=== PATIENT | female | born 1980 | race African-American/Black ===

== ENCOUNTER 2023-04-13 13:24 | Emergency (ER) | payer OTHER, SELFPAY ==
[2023-04-13] VITALS (8 sets, daily range): BP systolic 86–101; BP diastolic 53–64; PULSE 51–83; RESP 14–18; TEMP 36.6–37.6; O2SAT 97–100; BMI 21.4
--- NOTE | ~2023-04-13 | XR_ITS ---
EXAMINATION: XR CHEST CLINICAL INFORMATION: Chest congestion COMPARISON: None available. TECHNIQUE: Frontal view of the chest was obtained. FINDINGS: The lungs are well-expanded with patchy opacity right upper lobe likely infiltrate or atelectasis. Heart size and pulmonary vascularity is normal. No gross bony abnormality seen. XR/XR chest 1V IMPRESSION: Patchy opacity right upper lobe likely infiltrate or atelectasis.
--- NOTE | 2023-04-13 13:38 | ED.GENADULT ---
HPI - General Adult General Chief complaint: Upper Respiratory Symptoms Stated complaint: Cough Head Pain Sore Throat Time Seen by Provider: 04/13/23 17:18 Source: patient and RN notes reviewed Mode of arrival: ambulatory Limitations: no limitations History of Present Illness HPI narrative: This is a 42-year-old female, with no known medical problems, presenting to the emergency department complaints of subjective fevers, cough, headaches, sore throat, congestion x 3 days. Patient reports that she has been taking Tylenol and ibuprofen as well as DayQuil which has provided her without any relief. She denies any chest pain or shortness of breath. Denies any abdominal pain, nausea, vomiting or diarrhea. She states that her child is sick and was recently diagnosed with the flu. No other complaints or concerns at this time. MD complaint: Cough Onset (ago): day(s) Relieving factors: none Exacerbating factors: none Associated symptoms: cough, fever/chills, headaches and loss of appetite Treatments prior to arrival: none Related Data Previous Rx's Medication Instructions Recorded acetaminophen 500 mg tablet 500 mg PO Q6H PRN fever or pain 04/13/23 (Tylenol Extra Strength) #30 tabs azithromycin 250 mg tablet 250 mg PO DAILY 4 days #4 tabs 04/13/23 ibuprofen 600 mg tablet 600 mg PO Q6H PRN pain #30 tabs 04/13/23 Allergies Allergy/AdvReac Type Severity Reaction Status Date / Time No Known Allergies Allergy Verified 04/13/23 13:38 Review of Systems Review of Systems: Yes all other systems are reviewed and are negative Constitutional: Constitutional: Reports as per [facility] Social History Social History Advance Directives: No Advance Directives Information Provided: No Physical Exam ED Vital Signs: Vital Signs - 24 hr 04/13/23 13:40 04/13/23 17:31 04/13/23 19:26 Temperature 99.6 F 98.5 F 98.7 F Pulse Rate 83 79 65 Respiratory Rate 18 18 16 Blood Pressure 101/61 94/53 L 88/60 L Pulse Oximetry 99 100 98 Oxygen Delivery Method Room Air Room Air Room Air BMI result Body Mass Index 21.4 Const General: cooperative, comfortable and no acute distress Orientation/consciousness: patient oriented x3 Limitations: no limitations HENMT Head: Yes normal to inspection, Yes normocephalic and Yes atraumatic Ears: hearing grossly normal bilaterally General nose exam: Normal external nose present Face and sinus: Yes normal facial exam Mouth: Normal oral and palatal mucosa present, oropharynx normal and moist mucous membranes Throat: Yes posterior oropharynx normal Eyes General: appearance normal, both eyes and all related structures Eyelids: Yes eyelids normal Conjunctivae: conjunctivae normal Sclerae: sclerae normal Pupils: Equal, round and reactive pupils present EOM: EOMs intact bilaterally Neck Neck: Yes normal visual inspection, Yes full ROM and Yes no lymphadenopathy Lymphatic: no lymphadenopathy noted Chest Chest palpation & inspection: normal inspection of the chest Resp Effort & Inspection: normal respiratory effort and able to speak in complete sentences Auscultation: clear to auscultation bilaterally, no crackles, no rales, no rhonchi and no wheezes Cardio Rate: regular rate Rhythm: regular rhythm Heart sounds: S1 normal heart sound present and S2 normal heart sound present GI Inspection: Yes normal to inspection Skin General skin exam: no rashes or lesions noted Trauma: no lacerations or abrasions Wounds: no wounds Neuro General: patient oriented x3 and moves all extremities Cranial nerves: Yes Equal, round and reactive pupils present Extrem General: Yes normal to inspection Right upper extremity: normal to inspection Left upper extremity: normal to inspection Right lower extremity: normal to inspection Left lower extremity: normal to inspection Course Course Course Narrative: RME:?42 yo female here w/ cough, sore throat, BERGMAN, chest congestion x2 days. kids positive for flu at home. Denies fever, chills, n/v. taking tylenol and motrin yesterday. took dose of dayquil this morning. posterior oropharynx wnl. lungs cta Plan for seriology, cxr Full HPI, ROS and PE to be performed by the primary ED provider. Reevaluation(s) Reevaluation #1: We had repeated her vital signs, blood pressure 88/60, patient is afebrile, not tachycardic. Given hypotension, will administer 1 L IV fluids and obtain basic labs. Spoke to attending physician, Dr. Moreno regarding patient's status who agrees with plan. Patient also get the given azithromycin and Tylenol. Sign-out was given to my colleague, Bucky Mon, ANTOINETTE pending re-evaluation after receiving IV fluids and labs. Reevaluation #2: Symptomatic improvement, BP 96/58. Ambulatory with a steady gait. CBC and CMP are overall unremarkable. At this time stable for discharge home, reviewed worrisome signs and symptoms that would warrant re-evaluation emergency department. All questions answered. Stable discharge. Time: 20:51 Medications Administered Discontinued Medications Generic Name Dose Route Start Last Admin Trade Name Jing PRN Reason Stop Dose Admin Acetaminophen 975 mg 04/13/23 18:59 04/13/23 19:19 Acetaminophen 325 Mg Tablet PO 04/13/23 19:00 975 mg ONCE ONE Administration Azithromycin 500 mg 04/13/23 18:59 04/13/23 19:19 Azithromycin 500 Mg Tablet PO 04/13/23 19:00 500 mg ONCE ONE Administration Sodium Chloride 1,000 mls @ 999 mls/hr 04/13/23 19:28 04/13/23 19:44 Ns IV 04/13/23 20:28 999 mls/hr .Q1H1M ONE Administration Medical Decision Making Medical Decision Making [facility] Narrative: This is a 42-year-old female, with no known medical problems, presenting to the emergency department with complaints of fever, cough, headaches, sore throat, chest congestion, the last several days. On arrival, vital signs within normal limits, patient is afebrile, lungs are clear to auscultation bilaterally. Patient is nontoxic appearing however does appear tired, resting comfortably but easily aroused in the stretcher. Viral swabs were obtained out triage, she tested positive for influenza A. Chest x-ray shows patchy opacity in the right upper lobe likely infiltrate or atelectasis. Differential Diagnosis Differential Diagnoses: The differential diagnosis associated with the presentation includes Admission/Observation Consideration of admission/observation: Escalation of care including admission/observation considered Lab Data [facility] Lab Attestation statement: I reviewed the patient's lab results. 04/13/23 19:35 04/13/23 19:35 Labs: Lab Results 04/13/23 04/13/23 Range/Units 13:55 19:35 WBC 3.8 L (4.8-10.8) X10*3/uL RBC 4.54 (4.20-5.50) X10*6/uL Hgb 12.3 (12.0-16.0) g/dl Hct 37.4 (37.0-47.0) % MCV 82.4 (80.0-98.0) fL MCH 27.1 (27.0-33.0) pg MCHC 32.9 (31.0-35.0) g/dl RDW 13.9 (11.0-16.0) % Plt Count 209 (160-400) X10*3/uL MPV 9.5 (9.4-12.3) fL Immature Gran % (Auto) 0.3 (0.0-0.4) % Neut % (Auto) 50.0 (45-73) % Lymph % (Auto) 33.9 (20-40) % [place] % (Auto) 15.3 H (2-11) % Eos % (Auto) 0.0 (0-4) % Baso % (Auto) 0.5 (0-2) % Lymph # (Auto) 1.3 (1.2-4.9) X10*3/uL [place] # (Auto) 0.6 (0.1-1.2) X10*3/uL Eos # (Auto) 0.0 (0.0-0.4) X10*3/uL Baso # (Auto) 0.0 (0.0-0.2) X10*3/uL Abs Immat Gran (auto) 0.01 (0.00-0.03) X10*3/uL Absolute Neuts (auto) 1.9 L (2.0-8.3) x10*3/uL Absolute Nucleated RBC 0.000 (0.0-0.012) X10*3/uL Nucleated RBC % (auto) 0.0 (0.0-0.2) /100WBC Sodium 137 (135-145) mmol/L Potassium 3.5 (3.3-5.1) mmol/L Chloride 103 (96-108) mmol/L Carbon Dioxide 25 (22-29) mmol/L Anion Gap 13 (12-20) BUN 9 (9-16) mg/dL Creatinine 0.67 (0.5-1.4) mg/dL Estim Creat Clear Calc 90.4 Estimated GFR > 60 Random Glucose 94 (60-115) mg/dL Lactic Acid 0.8 (0.5-2.0) mmol/L Calcium 8.8 (8.4-10.2) mg/dL Total Bilirubin 0.2 (0.0-1.0) mg/dL Direct Bilirubin < 0.2 (0.0-0.5) mg/dL AST 42 H (5-31) U/L ALT 34 H (0-31) U/L Alkaline Phosphatase 50 (39-117) U/L Total Protein 7.2 (6.5-8.0) g/dL Albumin 3.7 (3.5-5.0) g/dL Influenza Type A (PCR) POSITIVE A (Negative) Influenza Type B (PCR) NEGATIVE (Negative) RSV RNA Qual (PCR) NEGATIVE (Negative) SARS-CoV-2 RNA (RT-PCR) NEGATIVE (Negative) S. pyogenes GrpA ROMAN Negative (Negative) Radiology Impression Discussion of test interpretation with radiology: I have reviewed the radiologist's reading. External Record Review External record reviewed: Inpatient record, Office record, Outpatient record, Prior outpatient labs, Prior outpatient radiology, Primary care record and Outside ED record Discharge Plan Discharge Clinical Impression: Influenza, Pneumonia Patient Disposition: Home, Self-Care Instructions: Influenza (ED), Community Acquired Pneumonia (ED) Additional Instructions: You were seen in the emergency department due to fevers, cough, headaches, sore throat, and congestion. Your symptoms are likely due to testing positive for the flu. Your chest x-ray is concerning for the start of a pneumonia. We are treating you with an antibiotic. Your given your 1st dose in the emergency department today. Please continue antibiotic over the next several days as directed. We also give you dose of Tylenol. You may alternate between Tylenol Motrin as needed for pain and symptoms. You need plenty of rest and drink plenty of fluids. If any new or worsening symptoms occur including but not limited to chest pain, shortness of breath, please return for re-evaluation. Prescriptions: New acetaminophen [Tylenol Extra Strength] 500 mg tablet 500 mg PO Q6H PRN (Reason: fever or pain) Qty: 30 0RF ibuprofen 600 mg tablet 600 mg PO Q6H PRN (Reason: pain) Qty: 30 0RF azithromycin 250 mg tablet 250 mg PO DAILY 4 Days Qty: 4 0RF Rx Instructions: Patient was given 1st dose in the department on 04/13/2023
[2023-04-13 14:10] LABS: IDNOW Serial# 08D9AD1C; Strep A Nucleic Acid Negative (Negative)
[2023-04-13 14:37] LABS: Influenza A PCR POSITIVE (Negative); Influenza B PCR NEGATIVE (Negative); Resp Syncy Virus RNA Qual PCR NEGATIVE (Negative); SARS COV2 PCR INHOUSE NEGATIVE (Negative)
[2023-04-13] MEDS: Azithromycin 500 MG TABLET PO (19:19)
[2023-04-13] MEDS: Acetaminophen 325 MG TABLET 975 MG PO (19:19)
[2023-04-13] MEDS: 0.9 % Sodium Chloride 1,000 ML 999 ML IV ×2 (19:44→21:02)
[2023-04-13 19:51] LABS: MANUAL DIFF FLAG NO
[2023-04-13 19:53] LABS: Basophils Percent Auto 0.5 % (0-2); Hematocrit 37.4 % (37.0-47.0); Hemoglobin 12.3 g/dl (12.0-16.0); Imm Gran Abs Auto 0.01 X10*3/uL (0.00-0.03); Imm Gran Pct Auto 0.3 % (0.0-0.4); Lymphocytes Absolute Auto 1.3 X10*3/uL (1.2-4.9); Lymphocytes Percent Auto 33.9 % (20-40); Mean Corpuscular HGB Conc 32.9 g/dl (31.0-35.0); Mean Corpuscular Hemoglobin 27.1 pg (27.0-33.0); Mean Corpuscular Volume 82.4 fL (80.0-98.0); Mean Platelet Volume 9.5 fL (9.4-12.3); Monocytes Absolute Auto 0.6 X10*3/uL (0.1-1.2); Monocytes Percent Auto 15.3 % (2-11); Neutrophils Absolute Auto 1.9 x10*3/uL (2.0-8.3); Platelet Count 209 X10*3/uL (160-400); Red Blood Count 4.54 X10*6/uL (4.20-5.50); Red Cell Distribution Width 13.9 % (11.0-16.0); White Blood Count 3.8 X10*3/uL (4.8-10.8)
[2023-04-13 20:01] LABS: Lactic Acid 0.8 mmol/L (0.5-2.0)
[2023-04-13 20:07] LABS: Alanine Aminotransferase 34 U/L (0-31); Albumin Level 3.7 g/dL (3.5-5.0); Alkaline Phosphatase 50 U/L (39-117); Anion Gap 13 (12-20); Aspartate Amino Transferase 42 U/L (5-31); Bilirubin Direct < 0.2 mg/dL (0.0-0.5); Bilirubin Total 0.2 mg/dL (0.0-1.0); Blood Urea Nitrogen 9 mg/dL (9-16); Calcium 8.8 mg/dL (8.4-10.2); Carbon Dioxide 25 mmol/L (22-29); Chloride 103 mmol/L (96-108); Creatinine Clr Calc Pharmacy 90.4; Estimated Glomerular Filt Rate > 60; Glucose Random 94 mg/dL (60-115); Potassium 3.5 mmol/L (3.3-5.1); Sodium 137 mmol/L (135-145); Total Protein 7.2 g/dL (6.5-8.0)
--- NOTE | 2023-04-13 20:58 | PC.NURSE ---
provider shena sebastian notified upon look to d/c pt. sean sebastian ordering another liter prior to d/c instead. resting. on tele nsr with +o2 on ra. flu precautions remain
== END 2023-04-13 23:12 | disposition home or self-care (01) ==
PROVIDERS: Physician Assistant Medical; Emergency Provider Emergency Medicine
DX: J10.1 Influenza due to other identified influenza virus with other respiratory manifestations (principal); J18.9 Pneumonia, unspecified organism; R05.9 Cough, unspecified; R51.9 Headache, unspecified; R50.9 Fever, unspecified; R11.2 Nausea with vomiting, unspecified; Z20.822 Contact with and (suspected) exposure to COVID-19; Z20.828 Contact with and (suspected) exposure to other viral communicable diseases; Z79.899 Other long term (current) drug therapy
CPT/HCPCS: 0241U; 36415; 71045; 80048; 80076; 83605; 85025; 87040; 87651; 96360; 96361; 99284; 99285

== ENCOUNTER 2024-11-21 20:28 | Emergency (ER) | payer OTHER, SELFPAY ==
--- NOTE | ~2024-11-21 | XR_ITS ---
CLINICAL HISTORY: pain s p fall Radiographs of the right wrist, 4 views Comparison: None available Findings: No fracture or dislocation. No degenerative change. Bone mineralization is normal. Soft tissue swelling. Impression: No fracture. This document has been electronically signed by: Halima Fortune MD on 11/21/2024 21:25:54
--- NOTE | ~2024-11-21 | XR_ITS ---
CLINICAL HISTORY: pain s p fall Radiographs of the left knee, 4 views Comparison: None available Findings: There is no fracture or dislocation. No joint space narrowing or osteophytosis. Bone mineralization is normal. No knee joint effusion. Soft tissue swelling. Impression: No fracture or joint effusion. This document has been electronically signed by: Halima Fortune MD on 11/21/2024 21:26:49
[2024-11-21 20:32] VITALS: BP 115/67; PULSE 58; RESP 18; TEMP 36.6; O2SAT 100; BMI 21.9
--- NOTE | 2024-11-21 20:34 | ED_ITS ---
HPI - Fall General Chief Complaint: Fall Stated Complaint: Fall at work Related Data Previous Rx's ?Medication ?Instructions ?Recorded acetaminophen 500 mg tablet 500 mg PO Q6H PRN fever or pain 04/13/23 (Tylenol Extra Strength) #30 tabs azithromycin 250 mg tablet 250 mg PO DAILY 4 days #4 t abs 04/13/23 ibuprofen 600 mg tablet 600 mg PO Q6H PRN pain #30 t abs 04/13/23 Allergies Allergy/AdvReac Type Severity Reaction Status Date / Time No Known Allergies Allergy Verified 11/21/24 20:37 [facility] Social History Social History Advance Directives: No Advance Directives Information Provided: No Physical Exam Vital Signs: Vital Signs: Last Vital Signs Temp 97.8 F 11/21/24 20:32 Pulse 58 11/21/24 20:32 Resp 18 11/21/24 20:32 BP 115/67 11/21/24 20:32 Pulse Ox 100 11/21/24 20:32 O2 Del Method Room Air 11/21/24 20:32 BMI result Body Mass Index 21.9 Course Course Course Narrative: This is a Rapid Medical Examination (RME) performed by Demetrius Zamora PA-C in triage. Full HPI, ROS, assessment and treatment plan per primary provider in the Main ED. 44 yo female presents to the ER for evaluation after she tripped and fell at work 45 minutes ago. she fell onto her left knee and outstretched hands. c/o 8/10 right wrist pain and left knee pain. ambulatory into triage. no gross deformity. of the right wrist or left knee. she has tenderness on palpation of the medial and lateral right right. NV Intact distally. left knee appears normal, mild tenderness of the patella. sitting with the knee flexed at 90 degrees. Plan: xr left knee and right wrist Reevaluation(s) Reevaluation #1: XR images reviewed. no acute fractures seen in the wrist or knee patient left the ER prior to completing treatment. Discharge Plan Discharge Clinical Impression: Acute knee pain, Acute wrist pain Patient Disposition: Left W/O Completing Treatment Prescriptions: No Action acetaminophen [Tylenol Extra Strength] 500 mg tablet 500 mg PO Q6H PRN (Reason: fever or pain) Qty: 30 0RF ibuprofen 600 mg tablet 600 mg PO Q6H PRN (Reason: pain) Qty: 30 0RF azithromycin 250 mg tablet 250 mg PO DAILY 4 Days Qty: 4 0RF Rx Instructions: Patient was given 1st dose in the department on 04/13/2023 Discharge Date/Time: 11/21/24 22:55
--- NOTE | 2024-11-21 23:17 | PC.NURSE ---
pt refusd to wait any longer, wait time too long. Pt asked if we could fill out Work papers for injury. T/w explained that the paperwork would have to be filled out by provider after they assess her and patient encouraged to stay but walked out.
== END 2024-11-21 22:55 | disposition left against medical advice (07) ==
PROVIDERS: Emergency Provider Emergency Medicine
DX: M25.569 Pain in unspecified knee (principal); M25.539 Pain in unspecified wrist; Z53.21 Procedure and treatment not carried out due to patient leaving prior to being seen by health care provider
CPT/HCPCS: 73110; 73564; 99281; 99283

== ENCOUNTER → 2024-11-21 20:35 | Outpatient (BNV) | payer OTHER, SELFPAY | PROVIDERS: Visit Provider Radiology Diagnostic Radiology | DX: M25.562 Pain in left knee (principal); R22.31 Localized swelling, mass and lump, right upper limb | CPT/HCPCS: 73110; 73564 ==

== ENCOUNTER 2024-11-28 12:44 | Emergency (ER) | payer OTHER, SELFPAY ==
--- NOTE | 2024-11-28 12:46 | ED_ITS ---
HPI - General Adult General Chief complaint: General Medical Stated complaint: Clearance for work Time Seen by Provider: 11/28/24 12:50 Source: patient Mode of arrival: ambulatory Limitations: no limitations History of Present Illness ED Provider: Gisselle Bates PA-C HPI narrative: Patient is a 44 year old assigned female at with no reported medical history presenting to the emergency department today requesting work clearance. Patient states that she was seen here on 11/21/2024 after a fall and injured her right wrist and left knee but left before completing treatment. Patient states that she went back to work and now they are requesting a note stating she is OK to return to work. Patient states that she is still sore but has no other complaints. Related Data Previous Rx's ?Medication ?Instructions ?Recorded acetaminophen 500 mg tablet 500 mg PO Q6H PRN fever or pain 04/13/23 (Tylenol Extra Strength) #30 tabs azithromycin 250 mg tablet 250 mg PO DAILY 4 days #4 t abs 04/13/23 ibuprofen 600 mg tablet 600 mg PO Q6H PRN pain #30 t abs 04/13/23 Allergies Allergy/AdvReac Type Severity Reaction Status Date / Time No Known Allergies Allergy Verified 11/28/24 12:49 Review of Systems Constitutional: Constitutional: Reports as per HPI Eyes: Eyes: Reports as per HPI ENT: Reports as per HPI Cardiovascular: Cardiovascular: Reports as per HPI Respiratory: Respiratory: Reports as per HPI Gastrointestinal: Gastrointestinal: Reports as per HPI Genitourinary: Genitourinary: Reports as per HPI Musculoskeletal: Comments: right wrist pain left knee pain PMFSH Past Medical History Attestation statement: The following information was validated with the patient. Source: old records reviewed and nursing notes reviewed Social History Social History Advance Directives: No Advance Directives Information Provided: Yes Do you have a plan to hurt others: No Plan Physical Exam ED Vital Signs: Vital Signs - 24 hr 11/28/24 12:47 Temperature 97.2 F Pulse Rate 69 Respiratory Rate 16 Blood Pressure 114/70 Pulse Oximetry 99 Oxygen Delivery Method Room Air BMI result Body Mass Index 21.9 Const General: cooperative, no acute distress, alert and awake Nutritional Appearance: well nourished Orientation/consciousness: patient oriented x3 HENMT Head: Yes normal to inspection and Yes atraumatic Ears: hearing grossly normal bilaterally and external ears normal General nose exam: Normal external nose present, no nasal discharge noted and no epistaxis Face and sinus: Yes normal facial exam, No abrasion and No laceration Mouth: Normal oral and palatal mucosa present, no drooling and no muffled voice Eyes General: appearance normal, both eyes and all related structures Periorbital: periorbital findings normal Eyelids: Yes eyelids normal Conjunctivae: conjunctivae normal Pupils: Equal, round and reactive pupils present EOM: EOMs intact bilaterally Neck Neck: Yes normal visual inspection and Yes full ROM Resp Effort & Inspection: normal respiratory effort and able to speak in complete sentences Neuro General: patient oriented x3, moves all extremities and CN's II-XI intact bilaterally Cranial nerves: Yes Equal, round and reactive pupils present Cognition (Neuro): normal cognition Extrem General: Yes normal to inspection, Yes full ROM and Yes capillary refill normal Psych Appearance: grossly normal Mental Status: mental status grossly normal Affect: normal affect Attitude: cooperative Thought process: Normal thought process present Thought content: Normal thought content present Insight: Good insight present (Psych) Medical Decision Making Medical Decision Making MDM Narrative: Patient is a 44 year old assigned female at with no reported medical history presenting to the emergency department today requesting work clearance. Patient's physical exam was unremarkable. Patient's right wrist and left knee x- rays from 11/21/2024 showed no acute process. I explained my physical exam findings as well as all test results to the patient. I answered all questions asked by the patient. I stressed the importance of the patient taking her medi cation as directed (either prescribed or as the over the counter packaging recommends). I stressed the importance of the patient following up with her primary care provider and given this was a work place injury - work connection. I stressed the importance of the patient returning to the emergency department immediately if her symptoms were to worsen or if she were to develop any dizziness, shortness of breath, difficulty breathing, chest pain, blurry vision, loss of vision, nausea, vomiting, abdominal pain, fever, chills, back pain, or any other complaints. Patient verbalized agreement and understanding with this treatment plan and discharge. Differential Diagnosis Differential Diagnoses: The differential diagnosis associated with the presentation includes Right wrist pain Right wrist sprain Left knee pain Left knee sprain Admission/Observation Consideration of admission/observation: Escalation of care including admission/observation considered Patient would have been admitted to the hospital had her work up had any findings where hospital admission was appropriate and her clinical presentation warranted hospital admission. Independent Interpretation I performed an independent interpretation of an: Plain X-Ray Interpretation: My interpretation is in agreement with the radiologist's impression of these imaging studies. CLINICAL HISTORY: pain s p fall Radiographs of the right wrist, 4 views Comparison: None available Findings: No fracture or dislocation. No degenerative change. Bone mineralization is normal. Soft tissue swelling. Impression: No fracture. This document has been electronically signed by: Halima Fortune MD on 11/21/2024 21:25:54 Dictated By: Halima Mcdonald MD Signed By: Electronically signed by Halima Mcdonald MD 11/21/242125 CLINICAL HISTORY: pain s p fall Radiographs of the left knee, 4 views Comparison: None available Findings: There is no fracture or dislocation. No joint space narrowing or osteophytosis. Bone mineralization is normal. No knee joint effusion. Soft tissue swelling. Impression: No fracture or joint effusion. This document has been electronically signed by: Halima Fortune MD on 11/21/2024 21:26:49 Dictated By: Halima Mcdonald MD Signed By: Electronically signed by Halima Mcdonald MD 11/21/242126 Radiology Impression Discussion of test interpretation with radiology: I have reviewed the radiologist's reading. Discharge Plan Discharge Clinical Impression: Knee pain, left, Pain in right wrist, Fall Patient Disposition: Home, Self-Care Instructions: Fall Prevention (ED) Additional Instructions: Your x-rays from 11/21/2024 were unremarkable - nothing broken / fractured. IF you are prescribed home medications and/or you are taking over the counter m edications at home - it is very important you continue to do so as prescribed / directed unless told otherwise. Follow up with a primary care provider. Return to the emergency department immediately if your symptoms worsen or if you develop any numbness, tingling, dizziness, shortness of breath, difficulty breathing, chest pain, blurry vision, loss of vision, nausea, vomiting, abdominal pain, fever, chills, back pain, or any other complaints. If you do not have a primary care provider - call any of the below numbers to establish and follow up with a primary care provider. [facility] Primary Care ([place]) [phone] [place] [address], [address] [facility] Primary Care ([address] [place]) [phone] [place] [address], [address] [facility], [address] [facility] Primary Care ([address]) [phone] [place] [address], [address] [facility], [address] [facility] Primary Care ([place]) [phone] [place] [address], [facility], [address] [facility] Family Medicine [phone] [place] [address], [address] Please see the information below about our Patient Portal. If you are not yet enrolled in the [facility] Patient Portal, you will receive an enrollment email invitation following your visit to any [facility] care setting. You may also self-enroll in the Patient Portal by visiting our website: [email or web address] The following information is required to access the Patient Portal: - Your [facility] Medical Record Number - Your personal home email address (must match what is in your electronic medical record, Registration staff can assist with this) - Name - Date of Capabilities of the Patient Portal: - Message some providers - View upcoming appointments - Access your health summary, medical history, and visit history - View current conditions and allergies - View procedure and lab results - View your medications, including guidelines, side effects, and precautions - Complete pre-appointment questionnaires requested by your provider - Ready summary reports of your office visits and procedures To access the Patient Portal Mobile [employer]ngel, follow these directions: - Search [employer] in the Ángel Store or [employer] Store - Download the Ángel - Search for [facility] - Enter your login/password Prescriptions: No Action acetaminophen [Tylenol Extra Strength] 500 mg tablet 500 mg PO Q6H PRN (Reason: fever or pain) Qty: 30 0RF ibuprofen 600 mg tablet 600 mg PO Q6H PRN (Reason: pain) Qty: 30 0RF azithromycin 250 mg tablet 250 mg PO DAILY 4 Days Qty: 4 0RF Rx Instructions: Patient was given 1st dose in the department on 04/13/2023 Stand Alone Forms: Work/School Release Print Language: Citizen Of [place]
[2024-11-28 12:47] VITALS: BP 114/70; PULSE 69; RESP 16; TEMP 36.2; O2SAT 99; BMI 21.9
[2024-11-28 13:05] VITALS: BP 114/70; PULSE 69; RESP 16; TEMP 36.2; O2SAT 99
== END 2024-11-28 13:05 | disposition home or self-care (01) ==
PROVIDERS: Emergency Provider Emergency Medicine
DX: Z04.2 Encounter for examination and observation following work accident (principal); M25.531 Pain in right wrist; M25.562 Pain in left knee; Z91.81 History of falling
CPT/HCPCS: 99282